=== PATIENT | male | born 1945 | race Caucasian/White ===

== ENCOUNTER 2018-03-01 19:44 | Emergency (ER) | payer OTHER, BC ==
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
[2018-03-01] MEDS ORDERED: MORPHINE 4 MG/ML SYR ONE ×2 (21:49→22:23)
[2018-03-01] MEDS ORDERED: ONDANSETRON 4 MG (ODT) TAB ONE (21:49)
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
[2018-03-01] MEDS ORDERED: CYCLOBENZAPRINE 10 MG TAB ONE (22:23)
[2018-03-01] MEDS ORDERED: ONDANSETRON 4 MG/2 ML VIAL ONE (22:23)
[2018-03-01] MEDS ORDERED: IBUPROFEN 200 MG TAB PO ONE (22:23)
[2018-03-01 22:44] VITALS: TEMP 99.2
[2018-03-01 22:47] VITALS: BP 126/64; O2SAT 96
== END 2018-03-01 22:33 | disposition home or self-care (01) ==
LOC: ER 19:44
DX: M54.12 Radiculopathy, cervical region (principal); V49.40XA Driver injured in collision with unspecified motor vehicles in traffic accident, initial encounter; E11.9 Type 2 diabetes mellitus without complications; I25.2 Old myocardial infarction; Z79.82 Long term (current) use of aspirin; Z79.4 Long term (current) use of insulin; Z88.0 Allergy status to penicillin; Z88.2 Allergy status to sulfonamides
CPT/HCPCS: 72070; 72125; 96372; 99285; J2405